=== PATIENT | male | born 1990 | race American Indian/Alaskan Native ===

== ENCOUNTER 2019-12-06 06:47 | Emergency (ER) | payer MEDICAID ==
--- NOTE | 2019-12-06 07:26 | Emergency Department Report ---
HPI - General Chief Complaint: Headache Time Seen by Provider: 12/06/19 07:17 - HPI HPI: Room 7 The patient is a 29-year-old male present with a chief complaint of headache. Patient states he has had a right frontal headache for the past 2 days. Patient denies any preceding trauma. Patient denies history of fever. Patient admits to nausea but denies vomiting. The patient drove himself to the emergency department and there are no visitors present ED Past Medical Hx - Past Medical History Previous Medical History?: Yes Hx Seizures: Yes (last in 9th grade not on meds.) Additional medical history: "bone pressing on temporal area" - Surgical History Past Surgical History?: No - Family History Family history: no significant - Social History Smoking Status: Never Smoker Substance Use Type: Marijuana - Medications Home Medications: Home Medications Medication Instructions Recorded Confirmed Last Taken Type Butalb/Acetamin/Caff 50-325-40 1 - 2 tab PO Q8HR PRN #20 tablet 12/06/19 Unknown Rx [Fioricet 50-325-40] ED Review of Systems ROS: Stated complaint: RT SIDE HEADACHE Other details as noted in HPI Constitutional: denies: fever Eyes: denies: eye pain ENT: denies: throat pain Respiratory: no symptoms reported Cardiovascular: denies: chest pain Endocrine: no symptoms reported Gastrointestinal: nausea. denies: vomiting Genitourinary: denies: dysuria Musculoskeletal: denies: back pain Neurological: headache Physical Exam - Physical Exam Vital Signs: Vital Signs 12/06/19 06:52 Temperature 97.8 F Pulse Rate 65 Respiratory 18 Rate Blood Pressure 156/120 O2 Sat by Pulse 99 Oximetry Vital Signs 12/06/19 12/06/19 06:52 07:27 Temperature 97.8 F 98.3 F Pulse Rate 65 67 Respiratory 18 12 Rate Blood Pressure 156/120 133/93 O2 Sat by Pulse 99 96 Oximetry Physical Exam: GEN: WD WN male lying on stretcher in NAD HEENT: NCAT, EOMI NECK: trachea midline PULM: CTA bilat. No resp distress noted CV: rrr no m/r/g ABD: s/nt/nd SKIN: no diaphoresis NEURO: GCS 15. Cranial nerves II through XII grossly intact, no drift MUSCULOSKELETAL: No evidence of acute injury ED Course Vital Signs 12/06/19 06:52 Temperature 97.8 F Pulse Rate 65 Respiratory 18 Rate Blood Pressure 156/120 O2 Sat by Pulse 99 Oximetry ED Medical Decision Making - Radiology Data Radiology results: report reviewed (CT head), image reviewed (CT head) Findings [facility] [address] [place] [address] Cat Scan Report Signed Patient: FILIBERTO ZHAO JR MR#: [id number] : 1989 Acct:[id number] Age/Sex: 29 / M ADM Date: 12/06/19 Loc: ED Attending Dr: Ordering Physician: AUDRA BARRAZA MD Date of Service: 12/06/19 Procedure(s): CT head/brain wo con Accession Number(s): [id number] cc: AUDRA BARRAZA MD CT HEAD WITHOUT CONTRAST INDICATION / CLINICAL INFORMATION: Headache with memory loss. TECHNIQUE: Axial imaging performed from the skull apex through the skull base without the use of contrast. Sagittal and coronal reformatted images. All CT scans at this location are performed using CT dose reduction for ALARA by means of automated exposure control. COMPARISON: None available. FINDINGS: CEREBRAL PARENCHYMA: No significant abnormality. No acute territorial infarct. HEMORRHAGE: None. EXTRA-AXIAL SPACES: Normal in size and morphology for the patient's age. VENTRICULAR SYSTEM: Normal in size and morphology for the patient's age. MIDLINE SHIFT OR HERNIATION: None. CEREBELLUM / BRAINSTEM: No significant abnormality. CALVARIUM: No significant abnormality. ORBITS: Normal as visualized. PARANASAL SINUSES / MASTOID AIR CELLS: Normal as visualized. SOFT TISSUES of HEAD: No significant abnormality. ADDITIONAL FINDINGS: None. IMPRESSION: Normal CT head Signer Name: Tito Carrion Jr, MD Signed: 12/06/2019 7:57 AM Workstation Name: [id number] Transcribed By: TTR Dictated By: TITO CARRION JR, MD Electronically Authenticated By: TITO CARRION JR, MD Signed Date/Time: 12/06/19 0757 DD/ 075 TD/TT: - Differential Diagnosis Hypertensive urgency, headache Critical care attestation.: If time is entered above; I have spent that time in minutes in the direct care of this critically ill patient, excluding procedure time. ED Disposition Clinical Impression: Headache Disposition: DC-01 TO HOME OR SELFCARE Is pt being admited?: No Does the pt Need Aspirin: No Condition: Stable Instructions: Acute Headache (ED) Prescriptions: Butalb/Acetamin/Caff 50-325-40 [Fioricet 50-325-40] 1 - 2 tab PO Q8HR PRN #20 tablet PRN Reason: Headache Referrals: [facility] [Outside] - 3-5 Days YANE GOMEZ MD [Staff Physician] - 3-5 Days (Dr Gomez is a neurologist. Please follow-up with him for further evaluation) Time of Disposition: 08:26
[2019-12-06 07:38] VITALS: BP 133/93
--- NOTE | 2019-12-06 08:01 | Cat Scan Report ---
CT HEAD WITHOUT CONTRAST INDICATION / CLINICAL INFORMATION: Headache with memory loss. TECHNIQUE: Axial imaging performed from the skull apex through the skull base without the use of cont rast. Sagittal and coronal reformatted images. All CT scans at this location are performed using CT dose reduction for ALARA by means of automated exposure control. COMPARISON: None available. FINDINGS: CEREBRAL PARENCHYMA: No significant abnormality. No acute territorial infarct. HEMORRHAGE: None. EXTRA-AXIAL SPACES: Normal in size and morphology for the patient's age. VENTRICULAR SYSTEM: Normal in size and morphology for the patient's age. MIDLINE SHIFT OR HERNIATION: None. CEREBELLUM / BRAINSTEM: No significant abnormality. CALVARIUM: No significant abnormality. ORBITS: Normal as visualized. PARANASAL SINUSES / MASTOID AIR CELLS: Normal as visualized. SOFT TISSUES of HEAD: No significant abnormality. ADDITIONAL FINDINGS: None. IMPRESSION: Normal CT head Signer Name: Tito Carrion Jr, MD Signed: 12/06/2019 7:57 AM Workstation Name: [id number]
== END 2019-12-06 08:52 | disposition home or self-care (01) ==
LOC: ED 06:47
DX: R51 Headache (principal); R11.0 Nausea; F12.10 Cannabis abuse, uncomplicated
CPT/HCPCS: 70450

== ENCOUNTER 2019-12-12 18:57 | Emergency (ER) | payer MEDICAID | END 2019-12-12 19:54 | disposition left against medical advice (07) | LOC: ED 18:57 | DX: Z53.21 Procedure and treatment not carried out due to patient leaving prior to being seen by health care provider (principal) ==